=== PATIENT | female | born 1990 | race Caucasian/White ===

== ENCOUNTER 2022-03-14 03:56 | Inpatient (IN) | payer OTHER ==
[~2022-03-14 03:56] MED LIST: Bupivacaine 0.25% 10 ML SDV ONE
[2022-03-14] MEDS ORDERED: Ondansetron 4 MG/2 ML SDV IVPUSH PRN (05:51)
[2022-03-14] MEDS ORDERED: Nalbuphine HCl 10 MG/ 1ML Amp IVPUSH PRN (05:51)
[2022-03-14] MEDS ORDERED: Sodium Chloride 0.9% 10 ML Syringe FLUSH PRN (05:51)
[2022-03-14] MEDS ORDERED: Oxytocin/Lactated Ringers 10 UNIT/1,000 ML BAG IV SCH ×3 (06:00→18:56)
[2022-03-14] MEDS: Lactated Ringers 1,000 ML IV SCH ×3 (06:52→09:25)
[2022-03-14] MEDS ORDERED: diphenhydrAMINE 50 MG/ML SDV IVPUSH PRN (07:09)
[2022-03-14] MEDS ORDERED: Bupivacaine/fentaNYL/NS 100 ML Bag EPIDUR PRN (07:09)
[2022-03-14] MEDS ORDERED: ePHEDrine 50 MG/ML SDV IVPUSH PRN (07:09)
[2022-03-14] MEDS ORDERED: fentaNYL 100 MCG/2 ML SDV EPIDUR PRN (07:09)
[2022-03-14] MEDS ORDERED: Sodium Chloride 0.9% 10 ML Syringe FLUSH SCH (09:00)
[2022-03-14] MEDS ORDERED: Ampicillin 2 GM in Sodium Chloride 0.9% 100 ML IV ONE (09:30)
[2022-03-14] MEDS ORDERED: Ampicillin 1 GM in Sodium Chloride 0.9% 100 ML IV SCH (13:30)
[2022-03-14] MEDS ORDERED: Docusate Sodium 100 MG Cap PO PRN (18:56)
[2022-03-14] MEDS ORDERED: Acetaminophen 325 MG Tab PO PRN (18:56)
[2022-03-14] MEDS ORDERED: Ibuprofen 600 MG Tab PO PRN (18:56)
[2022-03-14] MEDS ORDERED: Magnesium Hydroxide 400 MG/5 ML Susp 30 ML Cup PO PRN (18:56)
[2022-03-14] MEDS ORDERED: Witch Hazel Medicated Pads 40/Jar TOP PRN (18:56)
[2022-03-14] MEDS ORDERED: Benzocaine/Menthol 20%-0.5% Spray 78 GM Cannister TOP PRN (18:56)
[2022-03-14] MEDS ORDERED: Hydrocortisone Acetate 25 MG Supp RECTAL PRN (18:56)
[2022-03-15] MEDS ORDERED: Prenatal Multivitamin with Calcium/Folic Acid/Iron Tab PO SCH (09:00)
[2022-03-15] MEDS ORDERED: Citalopram 20 MG Tab PO SCH ×2 (09:00→21:00)
== END 2022-03-15 18:38 | disposition home or self-care (01) | DRG 805 ==
LOC: OBSVTOIN 03:56 → JD.OB 03:56
PROVIDERS: ADMIT Obstetrics & Gynecology; ATTEND Obstetrics & Gynecology
PROC: 10D07Z6 Extraction of Products of Conception, Vacuum, Via Natural or Artificial Opening (ICD-10-PCS; principal; 2022-03-14)
PROC: 0KQM0ZZ Repair Perineum Muscle, Open Approach (ICD-10-PCS; 2022-03-14)
PROC: 10907ZC Drainage of Amniotic Fluid, Therapeutic from Products of Conception, Via Natural or Artificial Opening (ICD-10-PCS; 2022-03-14)
PROC: 3E0R3BZ Introduction of Anesthetic Agent into Spinal Canal, Percutaneous Approach (ICD-10-PCS; 2022-03-14)
PROC: 00HU33Z Insertion of Infusion Device into Spinal Canal, Percutaneous Approach (ICD-10-PCS; 2022-03-14)
DX: O99.344 Other mental disorders complicating childbirth (principal); U07.1 COVID-19; Z37.0 Single live birth; O98.52 Other viral diseases complicating childbirth; F41.9 Anxiety disorder, unspecified; O69.81X0 Labor and delivery complicated by cord around neck, without compression, not applicable or unspecified; F32.A Depression, unspecified; O70.1 Second degree perineal laceration during delivery; Z79.899 Other long term (current) drug therapy; Z3A.39 39 weeks gestation of pregnancy
CPT/HCPCS: 36415; 51701; 51702; 59025; 59409; 85025; 86592; A9270-GY; J0290; J2590; J3010; J3490; J7120